=== PATIENT | female | born 1995 | race Caucasian/White ===

== ENCOUNTER → 2018-02-13 09:35 | Outpatient (CLI) | payer MEDICAID, SELFPAY ==
[2018-02-13 10:38] LABS: Hematocrit 39.5 % (37-47); Hemoglobin 13.7 g/dl (12.0-15.0); Mean Corp Hgb Conc 34.7 g/gl (32-36); Mean Corpuscular Hgb 29.4 pg (27.0-32.0); Mean Corpuscular Volume 84.8 fL (81-99); Mean Platelet Vol. 9.9 fl (6.2-12.0); Platelet Count 242 K/mm3 (150-450); RBC Distribution Width CV 13.3 % (11.6-14.6); RBC Distribution Width SD 40.9 fl (35.1-43.9); Red Blood Count 4.66 M/mm3 (4.2-5.4); Scan Indicated on CBC? Y/N NO; White Blood Count 6.8 K/mm3 (4.4-11.0)
[2018-02-13 11:00] LABS: AST(SGOT) 14 U/L (15-37); Alanine Aminotransfer ALT/SGPT 17 U/L (13-56); BUN 7 mg/dL (7-18); Creatinine, Serum 0.65 mg/dL (0.55-1.02); EST Glomerular Filtration Rate 119 mL/min (>60); Est Glom Filt Rate - Afr Amer 144 mL/min (>60); Glucose Challenge Gest 1H 50g 107 mg/dL (70-140)
[2018-02-14 14:01] LABS: HIV - WCH Non-Reactive (Nonreactive); Rubella IgG 69.2 IU/mL
[2018-02-14 15:35] LABS: HEPATITIS B SURFACE AG Negative (Negative)
[2018-02-16 03:58] LABS: Rapid Plasmin Reagin (RPR) NONREACTIVE (NONREACTIVE)
== END ==
PROVIDERS: Visit Provider Obstetrics & Gynecology
DX: O09.299 Supervision of pregnancy with other poor reproductive or obstetric history, unspecified trimester (principal); Z3A.00 Weeks of gestation of pregnancy not specified
CPT/HCPCS: 36415; 82565; 82950; 84450; 84460; 84520; 84550; 85027; 86592; 86703; 86762; 86850; 86900; 87340

== ENCOUNTER 2018-02-28 06:07 | Emergency (ER) | payer MEDICAID, SELFPAY ==
[2018-02-28 06:07] VITALS: BP 150/86; PULSE 93; RESP 18; TEMP 36.5; O2SAT 93; BMI 39.5
--- NOTE | 2018-02-28 06:27 | ED.DCSUM_ITS ---
- ER Visit Summary Date of Service: 02/28/18 Chief Complaint: Urinary urgency History of Present Illness: The patient is a 22 F who presents for 1 week of intermittent urinary urgency. Patient states for the last week she has had suprapubic pain and pressure, feeling like she needed to urinate but unable to. Since 1 AM this morning she has had worsening of her symptoms. She is 14 weeks . She denies fever, vomiting, diarrhea. She has had myalgias for the last week so she thought this was related to her being sick. No vaginal bleeding or discharge. Physical Examination: Vital signs: afebrile, hemodynamically stable, no hypoxia on room air General: well nourished, well developed, in no distress Skin: warm, dry, no rash, no pallor HEENT: normocephalic and atraumatic; PERRL, EOMI, moist mucous membranes Cardiovascular: regular rate and rhythm without murmurs, no peripheral edema, 2 + pulses all distal extremities Respiratory: No increased work of breathing, lungs are clear to auscultation bilaterally, no rales, rhonchi or wheezing Abdominal: Abdomen is soft, mild suprapubic tenderness with normoactive bowel sounds, no guarding or rebound, no masses MSK: Moves all extremities, no deformities, normal strength Neuro: Awake and alert, oriented ?4. No facial droop, sensation and motor function intact and symmetric Test Results: Abnormal Lab Results 02/28/18 06:40 Urine Color Yellow Urine Clarity Clear Urine pH 7.0 Ur Specific Balm 1.010 Urine Protein Negative Urine Glucose (UA) Normal Urine Ketones Negative Urine Occult Blood Negative Urine Nitrite Negative Urine Bilirubin Negative Urine Urobilinogen Normal Ur Leukocyte Esterase Negative Urine RBC 0 SEEN Urine WBC 0 SEEN Ur Squamous Epith Cells 0 SEEN Urine Bacteria RARE Urine Mucus 0 SEEN Emergency Department Course and Treatment: Bladder scan showed 100 cc in the bladder. Straight catheterization was performed with return of 800 cc of urine. Urinalysis was performed and showed no signs of urinary tract infection but did have rare bacteria. Because patient is known to be , urine culture was sent and patient was started on Keflex to cover her for bacteriuria in . Discussed with patient the urinary retention and the possibility that if she continues to have urinary retention she may need a Patel catheter placed and follow-up with urology. Patient requested at this time that we not do that and that she be given the opportunity to spontaneously void now that her bladder has been emptied and she has been started on antibiotics. We discussed any possible medications that could be causing urinary retention, and she stated that she started garlic and cayenne pepper supplements 1 week ago to help control her blood pressure naturally, which corresponds to her beginning to have issues with urinary retention. Her doctor did not advise her to start these medications, thus I encouraged her to stop them to see if this helps with her urinary symptoms. She agreed and was discharged home. She will return if she has recurrent issues with urinary retention. Treatment Plan: [] Disposition: [] Impression: Acute urinary retention, , asymptomatic bacteriuria This note was generated with [employer] dictation software. It may contain incorrect words, spelling, and punctuation that were not noted in review of the chart prior to signing ED Disposition - Plan for ED Patient: Chief Complaint: Complaint Prescriptions: Cephalexin [Keflex] 500 mg PO Q12H #14 cap Referrals: Care Physician,No Primary [Primary Care Provider] -
[2018-02-28 06:50] LABS: Mucous, Urine 0 SEEN /hpf (<or=2+); Red Blood Cells-Urine 0 SEEN /hpf (0-5); Squamous Epithelial Cells - UA 0 SEEN /hpf (5-10); White Blood Cells 0 SEEN /hpf (0-5)
[2018-02-28 06:58] LABS: Color, Urine Yellow (Yellow); Glucose, Dipstick Normal (Normal); Ketone-Dipstick Negative (Negative); Leukocyte Esterase-Dipstick Negative /ul (Negative); Nitrite-Dipstick Negative (Negative); Occult Blood-Urine Negative /ul (Negative); Protein-Dipstick Negative (Negative); Urine Bilirubin Dipstick Negative (Negative); Urine Clarity Clear (Clear); Urine Urobilinogen Normal (Normal)
[2018-02-28 07:08] LABS: Bacteria RARE /hpf (None Seen)
--- NOTE | 2018-02-28 07:58 | ED.DEP ---
ED Disposition - Plan for ED Patient: Disposition: Home or Assisted Living Chief Complaint: Complaint Instructions: ED Retention Urinary Female, ED UTI Cystitis Female Prescriptions: Cephalexin [Keflex] 500 mg PO Q12H #14 cap Referrals: Care Physician,No Primary [Primary Care Provider] - Kate Lai MD [STAFF PHYSICIAN] - 1-2 Days if not improving Additional Instructions: Please stop taking your supplements for blood pressure control, as the possibly could be contributing to your urinary retention. Take the antibiotic as prescribed. If you have inability to urinate for greater than 12 hours, return to the emergency department for another evaluation. If you have any worsening of your condition or any new concerning symptoms, please return immediately to the emergency department for another evaluation.
[2018-02-28 08:04] VITALS: BP 125/67; PULSE 71; RESP 15; O2SAT 99
== END 2018-02-28 08:05 | disposition home or self-care (01) ==
PROVIDERS: Emergency Provider Emergency Medicine
DX: O26.892 Other specified pregnancy related conditions, second trimester (principal); R82.71 Bacteriuria; R33.9 Retention of urine, unspecified; Z3A.14 14 weeks gestation of pregnancy; Z79.899 Other long term (current) drug therapy
CPT/HCPCS: 81001; 87086; 99283; P9612

== ENCOUNTER 2018-07-05 16:50 | Outpatient (RCR) | payer MEDICAID, SELFPAY | END 2018-07-26 23:59 | LOC: DC 16:50 | PROVIDERS: Visit Provider Advanced Practice Midwife | DX: O24.410 Gestational diabetes mellitus in pregnancy, diet controlled (principal) ==

== ENCOUNTER 2018-09-03 06:45 | Inpatient (IN) | payer MEDICAID, SELFPAY ==
[2018-09-03 00:55] VITALS: BMI 42.2
[2018-09-03] MEDS: Acetaminophen 500 MG Tablet 1000 MG PO (01:52)
[2018-09-03] MEDS: Mag Hydrox/Al Hydrox/Simeth 30 ML UDC PO (01:53)
[2018-09-03] MEDS: 0.9% Saline Lock 10 ML Syringe IV (01:53)
[2018-09-03 01:57] LABS: Hematocrit 33.9 % (37-47); Hemoglobin 10.8 g/dl (12.0-15.0); Mean Corp Hgb Conc 31.9 g/gl (32-36); Mean Corpuscular Hgb 24.8 pg (27.0-32.0); Mean Corpuscular Volume 77.8 fL (81-99); Mean Platelet Vol. 9.9 fl (6.2-12.0); Platelet Count 220 K/mm3 (150-450); RBC Distribution Width CV 14.6 % (11.6-14.6); RBC Distribution Width SD 41.4 fl (35.1-43.9); Red Blood Count 4.36 M/mm3 (4.2-5.4); White Blood Count 7.6 K/mm3 (4.4-11.0)
[2018-09-03 02:01] LABS: Scan Indicated on CBC? Y/N NO
[2018-09-03 02:06] LABS: Prothrombin Time (Protime)PT. 13.2 SECONDS (11.7-14.9)
[2018-09-03 02:07] LABS: Partial Thromboplast Time 29.2 Seconds (24.1-36.2)
[2018-09-03 02:20] LABS: AST(SGOT) 22 U/L (15-37); Alanine Aminotransfer ALT/SGPT 21 U/L (13-56); Albumin, Serum 2.7 g/dL (3.2-5.0); Alkaline Phosphatase 179 U/L (45-117); Amylase 58 U/L (25-115); Bilirubin, Direct 0.07 mg/dL (0.00-0.30); EST Glomerular Filtration Rate 130 mL/min (>60); Est Glom Filt Rate - Afr Amer 158 mL/min (>60); Estimated Creatinine Clearance 125.92 ml/min; Lipase 147 U/L (73-393); Protein, Total 6.7 g/dL (6.4-8.2); Uric Acid 6.5 mg/dL (2.6-6.0)
[2018-09-03 07:41] LABS: Bedside Glucose 69 mg/dL (70-110)
[2018-09-03] MEDS: Lactated Ringers 1,000 ML 50 ML IV ×3 (07:44→17:49)
[2018-09-03] MEDS: Oxytocin 30 units/NS 500 ml 30 UNITS/500 ML IV.SOLN IV (07:44)
--- NOTE | 2018-09-03 08:35 | PCM.HP.OB ---
- Problem List (1) Gestational diabetes mellitus (GDM) Status: Acute (2) Gestational hypertension Status: Acute (3) Obesity during Status: Acute History Date of Admission: 06/05/17 Final DANITA: 09/02/18 Final DANITA Source: LMP Gestational age: 40 Weeks and 1 Days History of this : This is a 22 year-old, G [6], P [2031], at 40 weeks 1day gestational age. Presented to L&D late last night with Headache x 5 days, ringing in the ears, no vision changes. Tylenol given, now just feeling pressure rating it a 3/10 and improved. Patient non compliant, not seen in off since 07/06/18. Declined induction of labor at 37 weeks for Gestational Hypertension. Patient with Gestational Diabetes, on insulin. Patient now requesting induction of labor. Allergies codeine Allergy (Verified 02/28/18 06:11) Shortness of breath vancomycin Adverse Reaction (Verified 02/28/18 06:11) Rash Redness presented to arms/face/back, hives to back with severe itching, pt stated she also felt light headed. Home Medications: Home Medications Ferrous Sulfate 325 mg PO DAILY@0800 06/05/17 Magnesium 30 mg PO DAILY 06/05/17 Cephalexin [Keflex] 500 mg PO Q12H #14 cap 02/28/18 Vit,Calc76/Iron/Folic [Pnv 29-1 Tablet] 1 each PO DAILY 02/28/18 Aspirin [Aspirin, Baby] 81 mg PO DAILY@0800 09/03/18 Cayenne 450 mg PO 09/03/18 Garlic 500 mg PO 09/03/18 Insulin NPH Human [Humulin N (Bkc)] 6 units SC QHS 09/03/18 Smoking Status: Never smoker Alcohol: None Number of Fetus(es): 1 Heart Tracin, moderate variability, accels, Category 1 TOCO: Irregular, mild. Pitocin at 2mu's Cervix 3cm/50%/-2 History Past Pregnancies: Past Pregnancies Delivery Date Name GA/Weeks Outcome Route Weight Infant Gender Labor Length Anesthesia Delivery Location Provider FOB Labs: GC/CT negative HIV negative Rubella negative O positive HBsAG negative RPR negative GC/CT negative Expected Infant Delivery Method: Spontaneous Vaginal Review of Systems Constitutional: Denies: Chills, Fever, Weight Change Eyes: Denies: Blurred vision, Double vision HEENT: Reports: Head Aches - Headache rating a 7 upon admission, given Tylenol then improved to 3/10.. Denies: Sinus Congestion, Sinus Drainage Cardiovascular: Denies: Chest Pain, Palpitations Respiratory: Denies: Cough, Shortness of breath at rest, Sputum production Gastrointestinal: Denies: Abdominal Pain, Nausea, Vomiting Genitourinary: Denies: Dysuria Musculoskeletal: Denies: Joint Pain, Joint Tenderness Skin: Denies: Rash, Wounds Neurological: Denies: Numbness, Tingling, Focal weakness Psychiatric: Denies: Anxiety, Depression, Homicidal Ideations, Suicidal Ideations Physical Exam General: Alert, Oriented x3, No apparent distress HEENT: Atraumatic, Normocephalic Cardiovascular: Regular rate, Regular Rhythm, No murmurs Lungs: Clear to auscultation, Normal air movement, No rhonchi, No wheeze Abdomen: Bowel Sounds Present, Non Tender, Gravid Neurological: - - +1/4 DTR bilateral patellar, no clonus HYBRID CORN BREEDER: Normal external genitalia. Negative for: Vulvar lesions Estimated gestational size: Appropriate for gestational size Presentation: Cephalic Cervix Dilation (cm): 3 Assessment/Plan All Active Problems Gestational diabetes mellitus (GDM) (Acute) Gestational hypertension (Acute) Obesity during (Acute) Cellulitis and abscess (Acute) This is a 22 year-old, G [6], P [2031], at 40 weeks gestational age. A:Induction of Labor for postdates Gestational Hypertension Gestational Diabetes Mellitus P: 1) Admit to L&D for Induction of labor due to postdates and gestational hypertension 2) IV, admission labs, pre-e labs. Uric acid elevated. 3) Planning epidural for pain management. 4) notified of patient in labor and for referral of management.
[2018-09-03 08:51] LABS: Bedside Glucose 69 mg/dL (70-110)
[2018-09-03 09:51] LABS: Protein, Urine (Random) 24.2 mg/dL (<11.9); Protein:Creat Ratio 248 mg/g CRE (0-200)
[2018-09-03 10:21] LABS: Group B Strep DNA By PCR Negative (Negative); Internal Control PASS; Probe Check PASS; Specimen Processing Control PASS
[2018-09-03 12:57] LABS: Bedside Glucose 70 mg/dL (70-110)
--- NOTE | 2018-09-03 13:03 | PCM.PN.BLA ---
Progress Note Contractions are getting more uncomfortable. Patient denies any headache or visual disturbances. VSS, BPs in normal range. BS just checked 70- FHTs -normal baseline, moderate variability, no repetitive decelerations. Tocometer shows contractions every 2-3 minutes. Assessment and plan: 40-week 1 day intrauterine gestation undergoing Pitocin induction of labor. We will proceed with AROM after patient gets epidural at her request. Is ready for this. Gestational diabetes class B. Blood sugars have been well controlled thus far. We will continue to monitor per protocol. Gestational hypertension: Blood pressures are normal in labor. We will continue to monitor.
[2018-09-03] MEDS: fentaNYL-bupivacaine (epidural) 100 ML BAG EPIDURAL ×2 (13:25→17:49)
--- NOTE | 2018-09-03 14:42 | PCM.PN.OB ---
Patient Problems: Active and Suspected Problems Gestational diabetes mellitus (GDM) (Acute) Gestational hypertension (Acute) Obesity during (Acute) Subjective: Resting comfortably in bed with epidural. at bedside. Objective: FHT: 135, moderate variability, accels, no decels. TOCO: Irregular every 2-4 minutes Cervix: 5cm/ 60%/-1. AROM for small amount of clear fluid. - Physical Exam Weight: 246 lb Body Mass Index (BMI) 42.2 Laboratory Tests Past 24 Hrs 09/03/18 09/03/18 09/03/18 01:40 01:40 01:40 WBC 7.6 RBC 4.36 Hgb 10.8 L Hct 33.9 L MCV 77.8 L MCH 24.8 L MCHC 31.9 L RDW 14.6 RDW Differential 41.4 Plt Count 220 MPV 9.9 PT 13.2 INR 1.0 APTT 29.2 Creatinine 0.60 Estim Creat Clear Calc 125.92 Est GFR (MDRD) Af Amer 158 Est GFR (MDRD) Non-Af 130 Uric Acid 6.5 H Total Bilirubin 0.20 Direct Bilirubin 0.07 AST 22 ALT 21 Alkaline Phosphatase 179 H Total Protein 6.7 Albumin 2.7 L Globulin 4.0 Amylase 58 Lipase 147 U Random Total Protein Urine Creatinine Protein/Creatinin Ratio Group B Strep DNA Specimen Comment Blood Type Antibody Screen 09/03/18 09/03/18 09/03/18 01:40 08:55 09:00 WBC RBC Hgb Hct MCV MCH MCHC RDW RDW Differential Plt Count MPV PT INR APTT Creatinine Estim Creat Clear Calc Est GFR (MDRD) Af Amer Est GFR (MDRD) Non-Af Uric Acid Total Bilirubin Direct Bilirubin AST ALT Alkaline Phosphatase Total Protein Albumin Globulin Amylase Lipase U Random Total Protein 24.2 H Urine Creatinine 97.70 Protein/Creatinin Ratio 248 H Group B Strep DNA Negative Specimen Comment Not Reportable Blood Type O POSITIVE Antibody Screen NEGATIVE POC Glucose 09/03/18 09/03/18 09/03/18 12:26 08:45 07:36 POC Glucose 70 69 L 69 L Medical Necessity - Tobacco Use Smoking Status: Never smoker Assessment/Plan All Active Problems Gestational diabetes mellitus (GDM) (Acute) Gestational hypertension (Acute) Obesity during (Acute) Cellulitis and abscess (Acute) A:Active labor, progressing Category 1 FHT P: 1) Continue with active management. 2) Epidural effective 3) notified of patient status.
[2018-09-03 16:15] LABS: Bedside Glucose 65 mg/dL (70-110)
[2018-09-03 16:15] LABS: Bedside Glucose 90 mg/dL (70-110)
[2018-09-03 17:16] LABS: Bedside Glucose 67 mg/dL (70-110)
[2018-09-03 18:36] LABS: Bedside Glucose 57 mg/dL (70-110)
[2018-09-03 18:36] LABS: Bedside Glucose 79 mg/dL (70-110)
[2018-09-03 18:55] LABS: Bedside Glucose 81 mg/dL (70-110)
[2018-09-03 19:56] LABS: Bedside Glucose 69 mg/dL (70-110)
[2018-09-03] MEDS: Oxytocin 30 units/NS 500 ml 30 UNITS/500 ML IV.SOLN 334 UNITS IV (21:00)
--- NOTE | 2018-09-03 21:04 | PCM.OB.VAG ---
Vaginal Delivery Maternal Presentation: Medically Indicated Induction Method of Induction: Pitocin, Amniotomy Medical Reason for Induction: - - gestational diabetes class B Amniotic Membrane Rupture Type: Spontaneous Amniotic Fluid Description: Clear Final DANITA: 09/02/18 Gestational age: 40 Weeks and 1 Days Date of Procedure: 09/03/18 Pre-Operative Diagnosis: labor, gestational diabetes Post-Operative Diagnosis: same Surgery/ Procedure Performed: Spontaneous Vaginal Delivery Type of Anesthesia: Epidural Description of Procedure: A vigorous female infant was delivered RETA over intact perineum by Claudia Jo CNM w/ me present for delivery. The remainder the was delivered with maternal pushing and gentle traction only in less than 15 seconds. The Pitocin infusion was initiated for active management of the third stage. The cord was clamped and cut after 1 minute. The was attended to by the waiting nursing staff. The placenta was delivered spontaneously and intact. The cervix and vagina were intact. Sponge and needle counts were correct. A vaginal sweep was completed by Claudia Jo CNM. Presentation: RETA Placental Delivery Description: Spontaneous Placenta Disposition: [facility] Cord Vessel Description: 3 Vessels Cord Entanglement: None Estimated Blood Loss: 200 A gender: Female Episiotomy Description: None Laceration: None Medications given after delivery: IV Pitocin Complications: None
[2018-09-03] MEDS: Oxytocin 30 units/NS 500 ml 30 UNITS/500 ML IV.SOLN 167 UNITS IV (21:30)
[2018-09-03 21:56] LABS: Bedside Glucose 78 mg/dL (70-110)
[2018-09-04] VITALS (7 sets, daily range): BP systolic 122–131; BP diastolic 61–70; PULSE 77–95; RESP 16; TEMP 36.1–37.1; O2SAT 96–100
[2018-09-04] MEDS: Naproxen 250 MG Tablet PO ×3 (03:28→21:13)
[2018-09-04 05:50] LABS: Bedside Glucose 88 mg/dL (70-110)
[2018-09-04] MEDS: Acetaminophen 500 MG Tablet 1000 MG PO ×2 (06:42→16:28)
--- NOTE | 2018-09-04 16:39 | PCM.PN.OB ---
Patient Problems: Active and Suspected Problems Gestational diabetes mellitus (GDM) (Acute) Gestational hypertension (Acute) Obesity during (Acute) Subjective: pt seen at bedside, doing well. pt denies Headache, blurry vision or epigastric pain. Pt reports good pain mgmt, lochia mild. breast feeding. - Physical Exam General: Alert, Oriented x3 Abdomen: Soft, Non Tender, - - fundus firm Vital Signs Temp Pulse Resp BP Pulse Ox 98.2 F 77 16 126/67 H 96 09/04/18 16:23 09/04/18 16:23 09/04/18 16:23 09/04/18 16:23 09/04/18 16:23 Oxygen Delivery Method Room Air Weight: 111.584 kg Body Mass Index (BMI) 42.2 Intake and Output for Last 24 Hours 09/02/18 09/03/18 09/04/18 23:59 23:59 23:59 Intake Total 2419 / 2419 Output Total 1050 / 1050 300 / 300 Balance 1369 / 1369 -300 / -300 POC Glucose 09/04/18 09/03/18 09/03/18 05:37 21:48 19:52 POC Glucose 88 78 69 L 09/03/18 09/03/18 09/03/18 18:50 18:32 18:11 POC Glucose 81 79 57 L 09/03/18 17:05 POC Glucose 67 L Medical Necessity - Tobacco Use Smoking Status: Never smoker Assessment/Plan All Active Problems Gestational diabetes mellitus (GDM) (Acute) Gestational hypertension (Acute) Obesity during (Acute) Cellulitis and abscess (Acute) PPD#1, doing well routine care pt requesting dc home at 24 hr- BPs stable dc home today at 24 hr
--- NOTE | 2018-09-04 16:45 | DCINST_ITS ---
Discharge Diet: No Restrictions Discharge Activity: Return to Normal Activity, May not drive while taking narcotic pain medications., May Shower May resume sexual activity in: 4-6 weeks Additional Activity Instructions:: Nothing in the vagina for 4-6 weeks. You may return to work/school in 6 weeks. Call your doctor if your incision/area has: Continuous Slow Oozing, Sudden Increased Bleeding, Increased Pain/ Swelling, Increased Redness, Foul Smelling Discharge Additional Instructions: If you experience any of the following, contact your healthcare provider. * Bleeding that soaks a pad every hour for 2 hours * Fever 100.4 or higher * Unrelieved incision or abdominal pain * Swelling, redness, discharge or bleeding from your incision or episiotomy site * Your incision begins to separate * Problems urinating (including inability to urinate or burning while urinating). * Visual changes * Severe headache * Flu-like symptoms * Pain or redness in one of both of your breasts * Pain, warmth, tenderness or swelling in your legs, especially the calf area * Frequent nausea and vomiting * Symptoms of depression or anxiety If you experience any of the following, call 911 or go to the nearest Emergency Room. * Chest pain * Problems breathing * Seizure activity * Partial or complete paralysis of a body part, slurred speech, weakness or drooping of the face, or a sudden inability to walk or hold your balance Allergies/Adverse Reactions: Allergies codeine Allergy (Verified 02/28/18 06:11) Shortness of breath vancomycin Adverse Reaction (Verified 02/28/18 06:11) Rash Redness presented to arms/face/back, hives to back with severe itching, pt stated she also felt light headed. Medications to take at Discharge Ferrous Sulfate 325 mg PO DAILY@0800 06/05/17 Magnesium 30 mg PO DAILY 06/05/17 Cephalexin [Keflex] 500 mg PO Q12H #14 cap 02/28/18 Vit,Calc76/Iron/Folic [Pnv 29-1 Tablet] 1 each PO DAILY 02/28/18 Cayenne 450 mg PO 09/03/18 Garlic 500 mg PO 09/03/18 Naproxen [Naprosyn] 250 - 500 mg PO Q8H PRN PRN #30 tablet 09/04/18 The following prescriptions were given: Naproxen [Naprosyn] 250 - 500 mg PO Q8H PRN PRN #30 tablet PRN Reason: Mild Pain (-09/02) When: Call to make an appointment with your doctor in 6 weeks. If you had elevated Blood Pressure or 4th degree laceration you will need to be seen in 2 weeks. Primary Care Physician: Care Physician,No Primary [Primary Care Provider] - Test Results: Test results from this visit will be discussed in further detail at your follow- up appointment, if applicable.
== END 2018-09-04 22:30 | disposition home or self-care (01) | DRG 560 ==
LOC: WPOUT 06:50
PROVIDERS: Advanced Practice Midwife; Admitting Provider Obstetrics & Gynecology; Referring Provider Obstetrics & Gynecology; Visit Provider Obstetrics & Gynecology
DX: O48.0 Post-term pregnancy (principal); O24.424 Gestational diabetes mellitus in childbirth, insulin controlled; O13.4 Gestational [pregnancy-induced] hypertension without significant proteinuria, complicating childbirth; O99.214 Obesity complicating childbirth; Z79.82 Long term (current) use of aspirin; Z79.4 Long term (current) use of insulin; Z3A.40 40 weeks gestation of pregnancy; Z37.0 Single live birth
CPT/HCPCS: 59025; 59050; 80076; 82150; 82565; 82570; 82962; 83690; 84156; 84550; 85027; 85610; 85730; 86850; 86900; 87081; 87653; 99218; J7120; A4216; G0378

== ENCOUNTER 2019-06-02 19:09 | Emergency (ER) | payer MEDICAID, SELFPAY ==
[2019-06-02 19:10] VITALS: BP 149/90; PULSE 79; PULSE 92; RESP 17; RESP 18; TEMP 36.5; O2SAT 98; BMI 38.9
--- NOTE | 2019-06-02 19:30 | US_ITS ---
HISTORY: PELVIC PAIN HX OF PCOS ADDITIONAL HISTORY: None provided. COMPARISON: 06/14/2015 TECHNIQUE: Transvaginal sonographic images of the pelvis were acquired utilizing grayscale, color Doppler and spectral Doppler imaging. FINDINGS: UTERUS: 9.7 x 5.7 x 6.3 cm. Coarsened echotexture without distinct mass. Small area of heterogeneous echogenicity in the cervix may be related to small nabothian cysts. ENDOMETRIUM: Small amount of fluid in the endometrium. A single layer thickness measures 3-4 mm. OVARIES: Unremarkable, measuring 2.5 x 1.3 x 2.2 cm on the right and 2.8 x 1.2 x 2.3 cm on the left. Flow demonstrated in the ovaries with spectral Doppler evaluation. ADNEXA: No mass. FREE FLUID: None detected. US/Transvaginal Non- IMPRESSION: Small amount of endometrial fluid. Small area of heterogeneous echogenicity in the cervix may be related to small nabothian cysts. at 2217 Reported and signed by: Debora Tom MD Electronically Signed: Debora Tom MD at 22:17 EST Tel , Service support ,
--- NOTE | 2019-06-02 19:33 | ED.DCSUM_ITS ---
- ER Visit Summary Date of Service: 06/02/19 Chief Complaint: Left lower quadrant pelvic pain. History of Present Illness: The patient is a 23 F to polycystic ovarian syndrome. G7, P3 AB 4 there is being miscarriages. States her last menstrual period 05/16/2019. She is taken home negative test. States has had intermittent pelvic pain on left side for last 3 to 4 weeks. Associated nausea vomiting today. No fever. No dysuria. No vaginal bleeding or discharge. Physical Examination: Young female no acute distress. Vital signs are stable and afebrile. HEENT exam unremarkable. Lungs clear to auscultation bilaterally. Heart regular rhythm no murmur. Abdomen soft. Nondistended normal bowel sounds no peritoneal signs. She has very low left lower quadrant pelvic pain. Remedies moves all 4. Back nontender. Neurologically she is awake alert with no focal neurological deficits. Test Results: Urinalysis shows no signs of infection. Urine test negative. Emergency Department Course and Treatment: Patient with left lower quadrant pelvic pain. UA, ultrasound and urine test to be obtained. Repeat exam patient is doing well at 21:20 PM. Awaiting ultrasound and results of the ultrasound. Treatment Plan: [] Disposition: [] Impression: Acute left-sided pelvic pain This note was generated with [employer] dictation software. It may contain incorrect words, spelling, and punctuation that were not noted in review of the chart prior to signing ED Disposition - Plan for ED Patient: Referrals: Care Physician,No Primary [Primary Care Provider] -
[2019-06-02 19:46] LABS: Mucous, Urine 0 SEEN /hpf (<or=2+); Red Blood Cells-Urine 0 SEEN /hpf (0-5)
[2019-06-02 19:48] LABS: Color, Urine Yellow (Yellow); Glucose, Dipstick Normal (Normal); Ketone-Dipstick 5 mg/dl (Negative); Leukocyte Esterase-Dipstick Negative /ul (Negative); Nitrite-Dipstick Negative (Negative); Occult Blood-Urine Negative /ul (Negative); Protein-Dipstick Negative (Negative); Urine Bilirubin Dipstick Negative (Negative); Urine Clarity Cloudy (Clear); Urine Urobilinogen Normal (Normal); Urine pH 6.5 (5.0 - 8.0)
[2019-06-02 19:49] LABS: Internal QC Validated? YES +Cl - CLEAR BKGD; Pregnancy, Urine Negative Negative
[2019-06-02 20:00] LABS: Squamous Epithelial Cells - UA 10-25 SEEN /hpf (5-10)
[2019-06-02 20:01] LABS: Bacteria 1+ /hpf (None Seen); White Blood Cells 0-5 SEEN /hpf (0-5)
--- NOTE | 2019-06-02 21:49 | ED.DEP ---
ED Disposition - Plan for ED Patient: Disposition: Home or Assisted Living Referrals: Parris Jo CNM [Certified Nurse Special Service Representative] - As soon as possible Additional Instructions: Tylenol and/or Motrin for pain. [facility] and see 1 of the PHP CONSULTANT physicians. Your urine was normal and not infected. Your urine test was negative.
--- NOTE | 2019-06-02 22:37 | ED.DEP ---
ED Disposition - Plan for ED Patient: Disposition: Home or Assisted Living Instructions: What Are Ovarian Cysts? Prescriptions: Ondansetron [Zofran Odt] 4 mg PO Q8H PRN PRN #10 tablet PRN Reason: Nausea Referrals: Parris Jo CNM [Certified Nurse Training Personnel Supervisor] - As soon as possible Additional Instructions: Tylenol and/or Motrin for pain. [facility] and see 1 of the OPERATOR SPECIALIST COMMUNICATIONS physicians. Your urine was normal and not infected. Your urine test was negative.
[2019-06-02 22:45] VITALS: RESP 18
== END 2019-06-02 22:45 | disposition home or self-care (01) ==
PROVIDERS: Emergency Provider Emergency Medicine
DX: R10.2 Pelvic and perineal pain (principal); E28.2 Polycystic ovarian syndrome; N88.8 Other specified noninflammatory disorders of cervix uteri; R11.2 Nausea with vomiting, unspecified; Z79.899 Other long term (current) drug therapy
CPT/HCPCS: 76830; 81001; 81025; 99282

== ENCOUNTER 2021-01-15 11:05 | Inpatient (IN) | payer MEDICAID, SELFPAY ==
[2021-01-15] VITALS (43 sets, daily range): BP systolic 113–138; BP diastolic 60–88; PULSE 68–106; TEMP 36.4–37.4; O2SAT 97–100; BMI 40.1
[2021-01-15 09:27] LABS: ROM Internal Control Test YES-OK TO RESULT pt. (Internal QC); ROM Patient Test Negative (Negative)
[2021-01-15] MEDS: Lactated Ringers 1,000 ML 50 ML IV (11:35)
[2021-01-15 11:48] LABS: Absolute Lymphocyte Count 1.49 X10^3/uL (0.83-4.51); Absolute Neutrophil Count 5.5 X10^3/uL (2.0-7.7); Basophil# 0.04 X10^3/uL; Basophil% 0.5 % (0-1); Eosinophil# 0.37 X10^3/uL; Eosinophils% 4.5 % (0-5); Hematocrit 35.8 % (37-47); Hemoglobin 11.9 g/dL (12.0-15.0); Lymphocyte # 1.49 X10^3/ul (0.83-4.51); Mean Corp Hgb Conc 33.2 g/dL (32-36); Mean Corpuscular Hgb 27.4 pg (27.0-32.0); Mean Corpuscular Volume 82.5 fL (81-99); Mean Platelet Vol. 9.8 fl (6.2-12.0); Monocyte# 0.79 X10^3/uL; Monocyte% 9.6 % (0-10); NRBC Flagged by Analyzer 0 % (0-5); Neutrophil # 5.51 X10^3/uL (2.7-7.7); Neutrophil % 66.6 % (47-70); Platelet Count 215 K/mm3 (150-450); RBC Distribution Width CV 13.1 % (11.6-14.6); RBC Distribution Width SD 39.2 fl (35.1-43.9); Red Blood Count 4.34 M/mm3 (4.2-5.4); White Blood Count 8.3 K/mm3 (4.4-11.0)
[2021-01-15] MEDS: Oxytocin 30 units/NS 500 ml 30 UNITS/500 ML IV.SOLN IV (11:53)
[2021-01-15] MEDS: Penicillin G 3,000,000 Units 50 ML 100 UNITS IV ×2 (16:25→20:42)
--- NOTE | 2021-01-15 17:06 | HP.PCM.OB_ITS ---
HPI - General General Date of Admission: 01/15/21 HPI Narrative RAYMOND WHALEY, is a 25 F -0-4-3 who presents at 39 weeks 5 days for elective induction of labor. Patient with no care in last 4 weeks. Presented to office asking for elective induction of labor due to lower back pain. Presented with risk benefits and alternatives and elected for induction of labor. OB history significant for gestational hypertension, GDM plus A2, maternal obesity, history of macrosomia 9 pounds 9 ounces Maternal Data Information DANITA Calculator Estimated Delivery Date Method Current WG Current Estimate 01/17/21 Manual 39w 5d PFSH PFSH Medical History (Updated 01/15/21 @ 17:12 by Parris Jo CNM) Gestational HTN MRSA infection Tonsillectomy planned Home Medications PNV 29-1 1 ea PO DAILY 02/28/18 [History Last Taken 01/13/21] levonorgestrel-ethinyl estrad 1 tab PO DAILY 06/02/19 [History Last Taken Unknown] ondansetron 4 mg PO Q8H PRN PRN #10 tab 06/02/19 [Rx Last Taken Unknown] aspirin 81 mg PO DAILY 01/15/21 [History Last Taken Unknown] Allergy/AdvReac Type Severity Reaction Status Date / Time codeine Allergy Shortness Verified 01/15/21 11:30 of breath vancomycin AdvReac Rash Verified 01/15/21 11:30 Family History (Updated 01/15/21 @ 12:14 by Jacquie Enriquez RN) Son Febrile seizure Mother Asthma Surgical History (Updated 01/15/21 @ 11:43 by Jacquie Enriquez RN) [place] teeth removed Social History Smoking Status: Never smoker History Elective abortions Hx Para 3 Spontaneous abortions Hx # Term Pregnancies Ectopic pregnancies Hx # Pregnancies Multiple births # of living children NST FHR Rate Baby A Baseline: 135 Variability:: Moderate Accelerations:: 15 x 15 Decelerations:: None FHR Category:: Category I Uterine Activity:: Irregular, mild ROS Constitutional Constitutional: Reports systems reviewed and no addt'l complaints, except as documented; Denies headache(s) Eyes Eyes: Denies acute decrease in peripheral vision, blurry vision or change in vis ion ENT HEENT: Reports systems reviewed and no addt'l complaints, except as documented Cardiovascular Cardiovascular: Denies chest pain or dizziness Respiratory/Chest Respiratory/Chest: Denies cough, dyspnea, dyspnea on exertion, shortness of breath at rest or shortness of breath with exertion Gastrointestinal Gastrointestinal: Denies abdominal pain, diarrhea, nausea or vomiting Genitourinary Genitourinary: Denies abdominal discomfort or movement Musculoskeletal Musculoskeletal: Denies limited range of motion Integumentary Integumentary: Reports systems reviewed and no addt'l complaints, except as documented Neurologic Neurologic: Reports systems reviewed and no addt'l complaints, except as documented Psychiatric Psychiatric: Reports systems reviewed and no addt'l complaints, except as documented Endocrine Endocrinology: Reports systems reviewed and no addt'l complaints, except as documented Hematologic/Lymphatic Hematologic/Lymphatic: Reports systems reviewed and no addt'l complaints, except as documented Allergic/Immunologic Allergic/Immunologic: Reports systems reviewed and no addt'l complaints, except as documented Vital Signs Vital Signs Vital Signs: 01/15/21 08:37 01/15/21 10:43 01/15/21 11:26 Temperature 98.7 F 99.3 F H 97.9 F Temperature Source Temporal Temporal Temporal Pulse Rate 101 H 98 Blood Pressure 133/88 H 133/66 H BP Systolic 133 133 BP Diastolic 88 66 Pulse Ox 98 01/15/21 11:27 01/15/21 13:02 01/15/21 13:03 Temperature 98.2 F Temperature Source Temporal Pulse Rate 106 H 89 Blood Pressure 134/73 H 127/60 H BP Systolic 134 127 BP Diastolic 73 60 Pulse Ox 98 97 01/15/21 14:12 01/15/21 15:19 01/15/21 15:20 Temperature 98.7 F 98.6 F Temperature Source Temporal Temporal Pulse Rate 84 80 Blood Pressure 116/61 120/66 BP Systolic 116 120 BP Diastolic 61 66 Pulse Ox 98 01/15/21 16:27 Temperature 98.3 F Temperature Source Temporal Pulse Rate 96 Blood Pressure 114/70 BP Systolic 114 BP Diastolic 70 Pulse Ox 99 Weight Weight: 226 lb 13.69 oz Body Mass Index (BMI) 40.1 Physical Exam Const alert and oriented x3 General Appearance: cooperative Orientation / Consciousness: awake, oriented to person, oriented to place and oriented to time Exam Limitations: no limitations HEENT normocephalic Head and Scalp: normal to inspection, normocephalic and atraumatic Face and Sinus: normal facial exam Eyes General Eye: normal appearance of both eyes Neck full ROM Chest Chest: symmetrical chest wall rise Resp normal respiratory effort and normal air movement Auscultation: clear to auscultation bilaterally Cardio regular rate, regular rhythm, S1 normal heart sound, S2 normal heart sound, no murmurs, no rub, no gallops and no clicks GI normal to inspection, nondistended, normoactive bowel sounds and non-tender appearance of the vagina normal Narrative: AROM for small amount of clear fluid Bladder / Kidney Exam: no CVA tenderness Manual OB Exam: estimated gestational size appropriate, presentation cephalic, dilated 3, effaced 60 and station -2 Back/Spine normal ROM Extremity normal to inspection and full ROM Skin no rashes or lesions noted Neuro oriented x3, CN's II-XII intact bilaterally and moves all extremities Sensorium / Orientation: awake, alert and oriented to person Motor Exam: clonus absent Deep Tendon Reflexes: Rt Patellar (L4): 2+ and Lt Patellar (L4): 2+ Labs Labs Labs: Blood Type O POSITIVE Antibody Screen NEGATIVE Hct 35.8 % (37-47) L Hgb 11.9 g/dL (12.0-15.0) L Rubella IgG Antibody 69.2 IU/mL Hep Bs Antigen Negative (Negative) HIV 1&2 Antibody Non-Reactive (Nonreactive) C.trachomatis DNA (PCR) Negative (Negative) Glucose 1 Hr 50 gm 107 mg/dL (70-140) Group B Strep DNA Negative (Negative) Rhogam given: No Assessment & Plan (1) Obesity during : (2) Encounter for elective induction of labor: PLAN: 1. Admit to labor and delivery 2. Routine labs, IV 3. Pitocin per protocol 4. Covid testing, unvaccinated 5. Epidural per her request for pain management 6. AROM 7. Continuous EFM 8. Dr. Rod notified of patient status and admission, [facility] physician
[2021-01-15] MEDS: Lactated Ringers 500 ML 999 ML IV ×2 (18:24→22:35)
[2021-01-15] MEDS: fentaNYL-bupivacaine (epidural) 100 ML BAG EPIDURAL (19:45)
[2021-01-15] MEDS: Oxytocin 30 units/NS 500 ml 30 UNITS/500 ML IV.SOLN 334 UNITS IV (22:55)
--- NOTE | 2021-01-15 23:03 | EX.PCM.OBRPT ---
Maternal Data Information DANITA Calculator Estimated Delivery Date Method Current Current Estimate 01/17/21 Manual 39w 5d Vaginal Delivery Maternal Presentation Maternal Presentation: Elective Induction Type of Induction: Pitocin Operative Information Date of Procedure: 01/15/21 Pre-Operative Diagnosis: Elective Induction of Labor Post-Operative Diagnosis: of viable male Surgery / Procedure Performed: Spontaneous Vaginal Delivery Type of Anesthesia: Epidural Estimated Blood Loss: 400 ml Time of Delivery: 22:54 Findings Description of Procedure: Progressed to complete with pressure. Epidural for pain management. of viable male over intact perineum. Apgars 9, 9. Infant head delivered direct OP with shoulders immediately forthcoming. Infant placed on maternal abdomen, strong cry. Mouth and nares suction for secretions. Pitocin started for active third stage management. Placenta delivered with expression [address] [place], intact, three-vessel cord. Perineum inspected and revealed intact, no repair needed. Fundus firm, EBL 400 mL. Vaginal sweep completed. Sponge and instrument count correct. Mom and baby stable, planning to breast-feed. Family bonding well. Dr. Rod notified of delivery Presentation: Vertex (OP) Amniotic Membrane Rupture Type: Artificial Amniotic Fluid Description: Clear Placental Delivery Description: Expressed Placenta Disposition: [facility] Cord Vessel Description: 3 Vessels Cord Entanglement: None A Gender: Male (1 minute): 9 (5 minute): 9 Delayed Cord Clamping: Yes Post Vaginal Delivery Medications Given After Delivery: IV Pitocin Episiotomy Description: None Laceration: None Complication Complications: None
[2021-01-16] VITALS (15 sets, daily range): BP systolic 118–149; BP diastolic 59–82; PULSE 76–110; RESP 16–18; TEMP 36.2–37.3; O2SAT 97–98
[2021-01-16] MEDS: Ibuprofen 600 MG Tablet PO ×3 (00:02→14:06)
[2021-01-16] MEDS: Acetaminophen 500 MG Tablet 1000 MG PO ×2 (04:15→11:59)
[2021-01-16 06:04] LABS: Hematocrit 33.7 % (37-47); Hemoglobin 11.2 g/dL (12.0-15.0); Mean Corp Hgb Conc 33.2 g/dL (32-36); Mean Corpuscular Hgb 27.5 pg (27.0-32.0); Mean Corpuscular Volume 82.8 fL (81-99); Mean Platelet Vol. 10.1 fl (6.2-12.0); Platelet Count 204 K/mm3 (150-450); RBC Distribution Width SD 39.1 fl (35.1-43.9); Red Blood Count 4.07 M/mm3 (4.2-5.4); White Blood Count 9.4 K/mm3 (4.4-11.0)
--- NOTE | 2021-01-16 09:41 | PCM.PN.OB ---
Subjective Subjective Doing well per patient and nursing staff. Ambulating and taking PO without difficulty. Voiding and passing flatus. Pain controlled. , services for assistance. Denies headache, visual changes, chest pain, shortness of breath, leg pain or increased bleeding. Lochia normal. Patient requesting to sign out AMA this evening due to childcare issues. Objective Data Objective Data Vital Signs: Vital Signs Temp Pulse Resp BP Pulse Ox 98.1 F 81 18 138/67 H 98 01/16/21 08:00 01/16/21 08:13 01/16/21 08:00 01/16/21 08:13 01/16/21 08:00 Oxygen Delivery Method Room Air Weight: 226 lb 13.69 oz Body Mass Index (BMI) 40.1 Intake & Output: Intake and Output for Last 24 Hours 01/14/21 01/15/21 01/16/21 23:59 23:59 23:59 Intake Total 2405.61 / 2405.61 333 / 333 Output Total 100 / 100 300 / 300 Balance 2305.61 / 2305.61 33 / 33 Lab / Micro Data Result Diagrams: 01/16/21 05:55 Labs: Laboratory Results - last 24 hr 01/15/21 11:35: WBC 8.3, RBC 4.34, Hgb 11.9 L, Hct 35.8 L, MCV 82.5, MCH 27.4, MCHC 33.2, RDW Std Deviation 39.2, RDW Coeff of Salima 13.1, Plt Count 215, MPV 9.8, Immature Gran % (Auto) 0.800, Neut % (Auto) 66.6, Lymph % (Auto) 18.0 L, [place] % (Auto) 9.6, Eos % (Auto) 4.5, Baso % (Auto) 0.5, Absolute Neuts (auto) 5.5, Absolute Lymphs (auto) 1.49, Nucleated RBC % 0 01/15/21 11:35: Blood Type O POSITIVE, Antibody Screen NEGATIVE 01/16/21 05:55: WBC 9.4, RBC 4.07 L, Hgb 11.2 L, Hct 33.7 L, MCV 82.8, MCH 27.5, MCHC 33.2, RDW Std Deviation 39.1, RDW Coeff of Salima 13.0, Plt Count 204, MPV 10.1 ROS Constitutional Constitutional: Reports systems reviewed and no addt'l complaints, except as documented; Denies headache(s) Eyes Eyes: Denies acute decrease in peripheral vision, blurry vision or change in vision ENT HEENT: Reports systems reviewed and no addt'l complaints, except as documented Cardiovascular Cardiovascular: Denies chest pain or dizziness Respiratory/Chest Respiratory/Chest: Denies cough, dyspnea, dyspnea on exertion, shortness of breath at rest or shortness of breath with exertion Gastrointestinal Gastrointestinal: Denies abdominal pain, diarrhea, nausea or vomiting Genitourinary Genitourinary: Denies abdominal discomfort Musculoskeletal Musculoskeletal: Denies limited range of motion Integumentary Integumentary: Reports systems reviewed and no addt'l complaints, except as documented Neurologic Neurologic: Reports systems reviewed and no addt'l complaints, except as documented Psychiatric Psychiatric: Reports systems reviewed and no addt'l complaints, except as documented Endocrine Endocrinology: Reports systems reviewed and no addt'l complaints, except as documented Hematologic/Lymphatic Hematologic/Lymphatic: Reports systems reviewed and no addt'l complaints, except as documented Allergic/Immunologic Allergic/Immunologic: Reports systems reviewed and no addt'l complaints, except as documented Physical Exam Const alert and oriented x3 General Appearance: cooperative Orientation / Consciousness: awake, oriented to person, oriented to place and oriented to time Exam Limitations: no limitations HEENT normocephalic Head and Scalp: normal to inspection, normocephalic and atraumatic Face and Sinus: normal facial exam Eyes General Eye: normal appearance of both eyes Neck full ROM Chest Chest: symmetrical chest wall rise Resp normal respiratory effort and normal air movement Auscultation: clear to auscultation bilaterally Cardio regular rate, regular rhythm, S1 normal heart sound, S2 normal heart sound, no murmurs, no rub, no gallops and no clicks GI normal to inspection, nondistended, normoactive bowel sounds and non-tender GI Narrative: Fundus firm 3 below U appearance of the vagina normal Bladder / Kidney Exam: no CVA tenderness Back/Spine normal ROM Extremity normal to inspection and full ROM Skin no rashes or lesions noted Neuro oriented x3, CN's II-XII intact bilaterally and moves all extremities Sensorium / Orientation: awake, alert and oriented to person Motor Exam: clonus absent Deep Tendon Reflexes: Rt Patellar (L4): 2+ and Lt Patellar (L4): 2+ Assessment & Plan (1) (normal spontaneous vaginal delivery): (2) Elevated BP without diagnosis of hypertension: PLAN: 1. Routine and breast-feeding instructions 2. BP mildly elevated, patient asymptomatic. Patient with history of gestational hypertension during . Discussed with patient would recommend at least 48 hr stay, patient informed refusal and has no childcare, signing out AMA this evening. Reviewed risk of preeclampsia of stroke, brain hemorrhage, and seizure with elevated blood pressure. Discussed if unable to stay, would recommend twice daily BP check and follow up in office on 01/18 and to call if blood pressure elevated or signs of preeclampsia. Patient voiced understanding and informed refusal. To call if blood pressure increasing or 160/110. 3. Hemoglobin stable 4. Pain control 5. Declines LARC
[2021-01-16] MEDS: Prenatal Vits Tablet 1 TABLET PO (11:42)
--- NOTE | 2021-01-16 12:46 | CASEMGMT ---
HAY Note: Referral Source: single end sewer Source: Patient is leaving AMA due to childcare issues. Resources needed? Mom: Anna Watts PNC : Parris Jo CNM Control: Copper IUD Baby: Robert Watts 01/15/21 Apgars 9/9 Weight 7 lbs 11 ounces Car Seat Coverer: Dr. Braeden Oshea Breast Feeding. Patient reports that breast feeding is going good. Mother's Other Children: 4 1/2 boy 3 1/2 girl Almost 2 1/2 girl Housing: Patient resides in a house with her and kids Transportation: Patient said that her has a truck. Patient can drive but they are looking for a 2nd auto vehicle Supplies: Patient reports that she has carneae, crib and bassinet. Patient reports she you a firm mattress for the bassinette. Patient reports she has clothes and diapers for the . Supports: Patient reports that her support is her . Patient said that her sister in law is an and stops in occassionally. Patient's said that his 2 sisters live 3 miles away. Education Level- Last grade completed was 10th grade. Patient was homeschooled and discontinued school due to issues with my stepdad. Agency Involvement: Patient is involved with [employer] for insurance and EBT (food stamps) FOB: Derrek Time Together: Patient and the FOB have been for 6 years. FOB will be involved at . FOB appears to be actively involved in his family life. He showed this comic writer pictures of the children and his extended family. FOB's Employment:FOB is self employed doing fabrication so he works close to his home and his schedule is flexible. FOB reports no mental health/AOD and Domestic Violence issues Maternal Mental Health History: Patient reports no issues with depression, anxiety or post depression. Patient was educated on PPD. Patient was educated on shaken baby syndrome, post depression and safe sleeping Patient denied any history of AOD or drug use. Patient repots that she feels comfortable going home. She reports no concerns regarding discharge. HAY provided patient with resources on safe sleep, counseling, on line resources for post mood and anxiety, 10 facts about depression and anxiety, Depression and anxiety phone contact number, [facility] Moms of Newborns and Help Me Grow Plan: Home with Community Resources handouts Kristina DONALDSON
--- NOTE | 2021-01-20 18:21 | NURSING ---
no answer on follow up phone call .left voicemail
== END 2021-01-16 17:40 | disposition home or self-care (01) | DRG 560 ==
LOC: WPOUT 11:08 → WP 11:08
PROVIDERS: Admitting Provider Advanced Practice Midwife; Referring Provider Advanced Practice Midwife; Visit Provider Advanced Practice Midwife
DX: O99.214 Obesity complicating childbirth (principal); E66.01 Morbid (severe) obesity due to excess calories; M54.5 Low back pain; R03.0 Elevated blood-pressure reading, without diagnosis of hypertension; Z3A.39 39 weeks gestation of pregnancy; Z37.0 Single live birth
CPT/HCPCS: 59025; 59050; 84112; 85025; 85027; 86850; 86900; 86901; 99218; J7120; G0378

== ENCOUNTER 2024-02-11 07:12 | Inpatient (IN) | payer MEDICAID, SELFPAY ==
[2024-02-11] VITALS (63 sets, daily range): BP systolic 95–139; BP diastolic 46–79; PULSE 64–106; RESP 16; TEMP 36.2–36.8; O2SAT 90–99; BMI 39.8
[2024-02-11 07:50] LABS: Absolute Lymphocyte Count 1.43 X10^3/uL (0.83-4.51); Absolute Neutrophil Count 5.2 X10^3/uL (2.0-7.7); Basophil# 0.05 X10^3/uL; Basophil% 0.6 % (0-1); Eosinophil# 0.39 X10^3/uL; Eosinophils% 4.9 % (0-5); Hematocrit 36.4 % (37-47); Hemoglobin 12.1 g/dL (12.0-15.0); Lymphocyte # 1.43 X10^3/ul (0.83-4.51); Lymphocyte % 18.1 % (19-41); Mean Corp Hgb Conc 33.2 g/dL (32-36); Mean Corpuscular Hgb 27.6 pg (27.0-32.0); Mean Corpuscular Volume 83.1 fL (81-99); Monocyte# 0.77 X10^3/uL; Monocyte% 9.7 % (0-10); NRBC Flagged by Analyzer 0 % (0-5); Neutrophil % 65.9 % (47-70); Platelet Count 223 K/mm3 (150-450); RBC Distribution Width CV 13.3 % (11.6-14.6); RBC Distribution Width SD 40.1 fl (35.1-43.9); Red Blood Count 4.38 M/mm3 (4.2-5.4); White Blood Count 7.9 K/mm3 (4.4-11.0)
[2024-02-11] MEDS: Penicillin G Pot 5,000,000 UNITS in 0.9% Normal Saline (100mL MB+) 100 ML 150 UNITS IV (07:56)
[2024-02-11] MEDS: Lactated Ringers 1,000 ML 50 ML IV (07:56)
[2024-02-11] MEDS: Oxytocin 15 Units/NS 250ml 15 UNITS/250 ML IV.SOLN 2 UNITS IV (08:27)
[2024-02-11 08:34] LABS: Syphilis Antibodies Non-reactive
[2024-02-11] MEDS: 0.9% Normal Saline Single 100 ML IV.SOLN. INTRA-UTER (08:53)
--- NOTE | 2024-02-11 09:21 | PCM.HP.OB ---
HPI - General General Date of Admission: 02/11/24 HPI Narrative RAYMOND WHALEY, is a 28 F who presents at 39w5d for elective induction of labor. . complicated by maternal obesity with pregravid BMI 32 Maternal Data Information DANITA Calculator Estimated Delivery Date Method Current WG Current Estimate 02/13/24 Manual 39w 5d PFSH PFSH Medical History (Updated 02/11/24 @ 10:35 by Parris Jo CNM) Stillborn, normal MRSA infection Tonsillectomy planned Gestational HTN Home Medications ?Medication ?Instructions ?Recorded ?Last Taken ?Type vitamin 1 ea PO DAILY 02/28/18 02/10/24 History no.76-iron,carbonyl 29 mg iron-folic acid 1 mg tablet (PNV 29-1) aspirin 81 mg tablet 81 mg PO DAILY 01/15/21 02/10/24 History Allergy/AdvReac Type Severity Reaction Status Date / Time codeine Allergy Shortness Verified 02/11/24 07:27 of breath vancomycin AdvReac Rash Verified 02/11/24 07:27 Family History (Updated 01/15/21 @ 12:14 by Jacquie Enriquez RN) Son Febrile seizure Mother Asthma Surgical History (Updated 02/11/24 @ 10:35 by Parris Jo CNM) Hx of breast reduction, elective [place] teeth removed Social History Smoking Status: Never smoker History Elective abortions Hx Para 4 Spontaneous abortions Hx # Term Pregnancies Ectopic pregnancies Hx # Pregnancies Multiple births # of living children NST FHR Rate Baby A Baseline: 135 Variability:: Moderate Accelerations:: 15 x 15 Decelerations:: None FHR Category:: Category I Uterine Activity:: Irregular ROS Constitutional Constitutional: Reports systems reviewed and no addt'l complaints, except as documented; Denies headache(s) Eyes Eyes: Denies acute decrease in peripheral vision, blurry vision or change in vision ENT HEENT: Reports systems reviewed and no addt'l complaints, except as documented Cardiovascular Cardiovascular: Denies chest pain or dizziness Respiratory/Chest Respiratory/Chest: Denies cough, dyspnea, dyspnea on exertion, shortness of breath at rest or shortness of breath with exertion Gastrointestinal Gastrointestinal: Denies abdominal pain, diarrhea, nausea or vomiting Genitourinary Genitourinary: Denies abdominal discomfort Musculoskeletal Musculoskeletal: Denies limited range of motion Integumentary Integumentary: Reports systems reviewed and no addt'l complaints, except as documented Neurologic Neurologic: Reports systems reviewed and no addt'l complaints, except as documented Psychiatric Psychiatric: Reports systems reviewed and no addt'l complaints, except as documented Endocrine Endocrinology: Reports systems reviewed and no addt'l complaints, except as documented Hematologic/Lymphatic Hematologic/Lymphatic: Reports systems reviewed and no addt'l complaints, except as documented Allergic/Immunologic Allergic/Immunologic: Reports systems reviewed and no addt'l complaints, except as documented Vital Signs Vital Signs Vital Signs: 02/11/24 08:28 02/11/24 08:28 02/11/24 08:28 Temperature Temperature Source Pulse Rate 89 Respiratory Rate Blood Pressure 115/57 L BP Systolic 115 BP Diastolic 57 Pulse Ox 97 02/11/24 08:28 02/11/24 08:28 02/11/24 08:28 Temperature 97.3 F L Temperature Source Temporal Pulse Rate Respiratory Rate 16 Blood Pressure BP Systolic BP Diastolic Pulse Ox Weight Weight: 232 lb Body Mass Index (BMI) 39.8 Physical Exam Const alert and oriented x3 General Appearance: cooperative Orientation / Consciousness: awake, oriented to person, oriented to place and oriented to time Exam Limitations: no limitations HEENT normocephalic Head and Scalp: normal to inspection, normocephalic and atraumatic Face and Sinus: normal facial exam Eyes General Eye: normal appearance of both eyes Neck full ROM Chest Chest: symmetrical chest wall rise Resp normal respiratory effort and normal air movement Auscultation: clear to auscultation bilaterally Cardio regular rate, regular rhythm, S1 normal heart sound, S2 normal heart sound, no murmurs, no rub, no gallops and no clicks GI normal to inspection, nondistended, normoactive bowel sounds and non-tender appearance of the vagina normal Bladder / Kidney Exam: no CVA tenderness Manual OB Exam: estimated gestational size appropriate, presentation cephalic, dilated 2cm, effaced 50%, station -2 and other Patel inserted through cervix without difficulty, 30ml NS instilled, tolerated well. Back/Spine normal ROM Extremity normal to inspection and full ROM Skin no rashes or lesions noted Neuro oriented x3, CN's II-XII intact bilaterally and moves all extremities Sensorium / Orientation: awake, alert and oriented to person Motor Exam: clonus absent Deep Tendon Reflexes: Rt Patellar (L4): 2+ and Lt Patellar (L4): 2+ Labs Labs Labs: Blood Type O POSITIVE Antibody Screen NEGATIVE Hct 36.4 % (37-47) L Hgb 12.1 g/dL (12.0-15.0) Syphilis Total Ab Non-reactive Rubella IgG Antibody 69.2 IU/mL Hep Bs Antigen Negative (Negative) HIV 1&2 Antibody Non-Reactive (Nonreactive) Glucose 1 Hr 50 gm 107 mg/dL (70-140) Group B Strep DNA Negative (Negative) Rhogam given: No HIV negative RPR negative HBsAG negative HepC negative O positive GC/CT negative GBS positive 1hr GCT normal Rubella immune Assessment & Plan (1) Encounter for elective induction of labor: (2) Obesity during : (3) Positive GBS test: (4) History of gestational hypertension: (5) History of gestational diabetes: (6) History of IUFD: COMMENT: Missed with anhydramnios and poor visualization at 18wk. Abnormal AFP, NIPT negative. No follow up testing. (7) History of bilateral breast reduction surgery: (8) History of delivery of macrosomal : COMMENT: Third child 9lb 9oz, no complications PLAN: Plan 1) Admit to labor and delivery 2) Routine PN labs 3) Continous EFM 4) Patel and pitocin for induction of labor 5) PCN for GBS prophylaxis 6) Planning unmedicated , epidural or pain management upon request 7) collaborative physician and notified of above assessment, plan, and status
--- NOTE | 2024-02-11 10:49 | PN.OBGYN_ITS ---
Subjective Subjective Sitting up in bed. Objective Data Objective Data Vital Signs: Vital Signs Temp Pulse Resp BP Pulse Ox 98.0 F 75 16 122/70 H 97 02/11/24 10:00 02/11/24 10:01 02/11/24 10:00 02/11/24 10:01 02/11/24 08:28 Weight: 232 lb Body Mass Index (BMI) 39.8 Intake & Output: Intake and Output for Last 24 Hours 02/09/24 02/10/24 02/11/24 23:59 23:59 23:59 Intake Total 113.07 / 113.07 Balance 113.07 / 113.07 Lab / Micro Data 02/11/24 07:35 Labs: Laboratory Results - last 24 hr 02/11/24 07:35: WBC 7.9, RBC 4.38, Hgb 12.1, Hct 36.4 L, MCV 83.1, MCH 27.6, MCHC 33.2, RDW Std Deviation 40.1, RDW Coeff of Salima 13.3, Plt Count 223, MPV 10.0, Immature Gran % (Auto) 0.800, Neut % (Auto) 65.9, Lymph % (Auto) 18.1 L, [place] % (Auto) 9.7, Eos % (Auto) 4.9, Baso % (Auto) 0.6, Absolute Neuts (auto) 5.2, Absolute Lymphs (auto) 1.43, Nucleated RBC % 0, Syphilis Total Ab Non- reactive, Blood Type O POSITIVE, Antibody Screen NEGATIVE Physical Exam Const alert and oriented x3 General Appearance: cooperative Orientation / Consciousness: awake, oriented to person, oriented to place and oriented to time Exam Limitations: no limitations HEENT normocephalic Head and Scalp: normal to inspection, normocephalic and atraumatic Face and Sinus: normal facial exam Eyes General Eye: normal appearance of both eyes Neck full ROM Chest Chest: symmetrical chest wall rise Resp normal respiratory effort and normal air movement Auscultation: clear to auscultation bilaterally Cardio regular rate, regular rhythm, S1 normal heart sound, S2 normal heart sound, no murmurs, no rub, no gallops and no clicks GI normal to inspection, nondistended, normoactive bowel sounds and non-tender appearance of the vagina normal Narrative: Ultrasound for position. hand coming across cervical os. BOW intact Bladder / Kidney Exam: no CVA tenderness Back/Spine normal ROM Extremity normal to inspection and full ROM Skin no rashes or lesions noted Neuro oriented x3, CN's II-XII intact bilaterally and moves all extremities Sensorium / Orientation: awake, alert and oriented to person Motor Exam: clonus absent Deep Tendon Reflexes: Rt Patellar (L4): 2+ and Lt Patellar (L4): 2+ NST FHR Rate Baby A Baseline: 145 Variability:: Moderate Accelerations:: 15 x 15 Decelerations:: None FHR Category:: Category I Uterine Activity:: Irregular Assessment & Plan (1) (normal spontaneous vaginal delivery): (2) Encounter for elective induction of labor: (3) Obesity during : PLAN: Plan 1) Await spontaneous ROM at this time 2) Will notify incase nuchal hand after rupture 3) Continue GBS prophylaxis 4) Pitocin per protocol
[2024-02-11] MEDS: Penicillin G 3,000,000 Units 50 ML 100 UNITS IV ×3 (12:17→19:54)
[2024-02-11] MEDS: Lactated Ringers 1,000 ML 999 ML IV (13:49)
[2024-02-11] MEDS: fentaNYL-bupivacaine (epidural) 100 ML BAG EPIDURAL ×2 (14:22→19:24)
[2024-02-11] MEDS: Ondansetron 4 MG/2 ML Vial IV ×2 (15:46→19:53)
[2024-02-11] MEDS: Lactated Ringers 1,000 ML 200 ML IV (17:14)
[2024-02-11] MEDS: 0.9% Saline Lock 10 ML Syringe IV (19:53)
[2024-02-11] MEDS: Oxytocin 15 Units/NS 250ml 15 UNITS/250 ML IV.SOLN 334 UNITS IV (20:45)
--- NOTE | 2024-02-11 20:55 | EX.PCM.OBRPT ---
Assessment & Plan (1) Vaginal delivery: (2) Lactating mother: Maternal Data Information DANITA Calculator Estimated Delivery Date Method Current WG Current Estimate 02/13/24 Manual 39w 5d Vaginal Delivery Maternal Presentation Maternal Presentation: Elective Induction Type of Induction: Pitocin and Patel Bulb Operative Information Date of Procedure: 02/11/24 Pre-Operative Diagnosis: Elective induction of labor Post-Operative Diagnosis: Surgery / Procedure Performed: Spontaneous Vaginal Delivery Type of Anesthesia: Epidural Estimated Blood Loss: 200 ml Time of Delivery: 20:31 Findings Description of Procedure: Progressed to complete with urge to push. Epidural for pain management. of viable female infant over intact perineum. APGARS 8,9 respectively. Infant head delivered with body immediately forthcoming. Placed on maternal abdomen, strong cry. Mouth and nares suctioned for secretions. Pitocin started for active 3rd stage management. Cord doubly clamped and cut by FOB after pulsations ceased, delayed cord clamping. Placenta not forthcoming, coming through cervical os, manual removal, intact via pritchett, 3 vessel cord intact. Perineum inspected and revealed intact. Fundus firm and hemostasis achieved. EBL 200ml. Mom and baby stable, planning to breastfeed. Family bonding well. notified of delivery. Presentation: Vertex and RETA Amniotic Membrane Rupture Type: Artificial Amniotic Fluid Description: Clear Placental Delivery Description: Manual Removal Placenta Disposition: [facility] Cord Vessel Description: 3 Vessels Cord Entanglement: None Infant A Gender: Female (1 minute): 8 (5 minute): 9 Delayed Cord Clamping: Yes Post Vaginal Delivery Medications Given After Delivery: IV Pitocin Episiotomy Description: None Laceration: None Complication Complications: None
[2024-02-11] MEDS: Oxytocin 15 Units/NS 250ml 15 UNITS/250 ML IV.SOLN 83 UNITS IV (21:16)
[2024-02-12] VITALS: BP 118/56; PULSE 84; RESP 16; TEMP 36.3; O2SAT 97
[2024-02-12 00:10] VITALS: BP 118/56; PULSE 86
[2024-02-12] MEDS: Acetaminophen 500 MG Tablet 1000 MG PO ×2 (00:39→09:48)
[2024-02-12 03:48] VITALS: BP 95/51; PULSE 88; RESP 16; TEMP 36.7; O2SAT 96
[2024-02-12 05:44] LABS: Absolute Lymphocyte Count 1.45 X10^3/uL (0.83-4.51); Absolute Neutrophil Count 9.4 X10^3/uL (2.0-7.7); Basophil# 0.04 X10^3/uL; Basophil% 0.3 % (0-1); Eosinophil# 0.26 X10^3/uL; Eosinophils% 2.1 % (0-5); Hematocrit 32.5 % (37-47); Hemoglobin 10.6 g/dL (12.0-15.0); Lymphocyte # 1.45 X10^3/ul (0.83-4.51); Lymphocyte % 11.8 % (19-41); Mean Corp Hgb Conc 32.6 g/dL (32-36); Mean Corpuscular Hgb 27.5 pg (27.0-32.0); Mean Corpuscular Volume 84.2 fL (81-99); Mean Platelet Vol. 10.1 fl (6.2-12.0); Monocyte# 1.05 X10^3/uL; Monocyte% 8.5 % (0-10); NRBC Flagged by Analyzer 0 % (0-5); Neutrophil % 76.6 % (47-70); POSITIVE MORPHOLOGY YES; Platelet Count 209 K/mm3 (150-450); RBC Distribution Width CV 13.5 % (11.6-14.6); RBC Distribution Width SD 41.4 fl (35.1-43.9); Red Blood Count 3.86 M/mm3 (4.2-5.4); White Blood Count 12.3 K/mm3 (4.4-11.0)
[2024-02-12 06:27] LABS: Differential Comment SCANNED; Differential Indicated SCAN CRITERIA MET
[2024-02-12 08:00] VITALS: BP 113/58; PULSE 76; RESP 16; TEMP 36.8; O2SAT 98
--- NOTE | 2024-02-12 08:43 | PCM.PN.OB ---
Subjective Subjective pt doing well and offers no complaints. no YEUNG, dizziness, Cp, SOB, leg pain. ambulating and voiding without difficulty. wilber diet without N/V. lochia normal. Objective Data Objective Data Vital Signs: Vital Signs Temp Pulse Resp BP Pulse Ox O2 Del Method 98.3 F 76 16 113/58 L 98 Room Air 02/12/24 08:00 02/12/24 08:00 02/12/24 08:00 02/12/24 08:00 02/12/24 08:00 02/12/24 08:00 Oxygen Delivery Method Room Air Weight: 232 lb Body Mass Index (BMI) 39.8 Intake & Output: Intake and Output for Last 24 Hours 02/10/24 02/11/24 02/12/24 23:59 23:59 23:59 Intake Total 2355.41 / 2355.41 250 / 250 Output Total 1200 / 1600 1300 / 1300 Balance 1155.41 / 755.41 -1050 / -1050 Lab / Micro Data 02/12/24 05:35 Labs: Laboratory Results - last 24 hr 02/12/24 05:35: WBC 12.3 H, RBC 3.86 L, Hgb 10.6 L, Hct 32.5 L, MCV 84.2, MCH 27.5, MCHC 32.6, RDW Std Deviation 41.4, RDW Coeff of Salima 13.5, Plt Count 209, MPV 10.1, Immature Gran % (Auto) 0.700, Neut % (Auto) 76.6 H, Lymph % (Auto) 11.8 L, Mitchell % (Auto) 8.5, Eos % (Auto) 2.1, Baso % (Auto) 0.3, Absolute Neuts (auto) 9.4 H, Absolute Lymphs (auto) 1.45, Nucleated RBC % 0, Differential Comment SCANNED Physical Exam Const alert and no apparent distress General Appearance: comfortable HEENT normocephalic Resp normal respiratory effort GI soft to palpation, non-tender and non-distended Extremity no calf tenderness Assessment & Plan (1) Vaginal delivery: PLAN: PPD#1 s/p . Doing well. Going home instructions reviewed. Patient requesting to leave AMA and states she signed out AMA with other children as well. Discussed recommendation is to stay 24 hours after delivery and can discharge her tonight. She declines discharge tonight and states she wants to be home sooner. She understands by signing out AMA this is going against medical advice and recommendation.
[2024-02-12 12:43] VITALS: BP 113/56; PULSE 76; RESP 16; TEMP 36.6; O2SAT 96
[2024-02-12] MEDS: Ibuprofen 600 MG Tablet PO (14:18)
--- NOTE | 2024-02-13 09:07 | CASEMGMT ---
Social Work Assessment Labor and Delivery Unit Patient Address: [id number] [place] [address] Phone number: [phone] Date of Referral: 02/12/24 Time of Referral:? 0100 Referred By: Parris Jo Date of Intervention: ?02/12/24? Time of Intervention:? 1400 Reason for Referral:? mental health Sw completed chart review and acknowledges social work consult due to maternal mental health history. Sw presented to bedside and introduced self to mother of baby (IVY- Anna) and father of baby (FOB- Lake). Sw explained reason for sw consult and completed psychosocial assessment. History obtained from: medical records, MOB and FOB Household composition: Currently residing in the family home is IVY, MILLI, their 4 older children (Dannie- 7, Carrol- 6, Linda- 5, and Robert- 3), baby will also reside with family when ready for discharge. Parents deny any issue or concerns with housing, stating that it is safe and secure. Patient's parent/guardian status:? ?IVY reports that her and FOArnulfo have been together for 9 years after being introduced to each other through mutual friends. No concerns reported of domestic violence or intimate partner violence. Medical History: ?IVY is 28 year old female who is 10, para 4- now 5 following labor and delivery of . IVY received routine care during with [facility]. IVY presented to hospital for scheduled induction of labor at 39 weeks gestation on 02/11/24. Baby girl, was born on 02/11/24 weighing 7lb 10oz with apgars of 8 and 9 at one and five minutes of life, respectfully. IVY states that she is now signing out against AMA because baby is less than 24 hours old. MOB states that they will agree to follow up outpatient for testing that is being requested. IVY states that she would prefer to be at her home in her own space, and does not see a medical reason for her to stay admitted. IVY states that baby will be seen for a couple of appointments with fx artist (Char[facility]), however they do not follow with a fx artist for well check appointments. Educational Status:? Both parents completed 11th grade Financial Status: MILLI is employed outside of the home working as a fabricator. FOArnulfo states that he works for himself and is able to take off time now that baby has been born. Infant Supplies:?? Parents report to obtaining all necessary baby supplies, including: car seat, safe sleep space, clothes, diapers and wipes. Childcare/Caregiver(s):? MOB will be the primary caregiver to baby. Transportation:?? Both parents drive and have reliable means of transportation, no barriers at this time. Programs/Agencies Involved: ???IVY reports that she has access to SNAP benefits, denies medical insurance through S and denies linkage to mental health services or supports. Children Services/Legal Issues:??? No history of children services involvement disclosed. Sw not making referral to children services at this time. Behavioral Health Issues: ??Mental Health History:?FOB denies mental health history. MOB states denies having history of anxiety or depression. IVY then states that she had a late term loss prior to this / delivery and she did experience anxiety early on in nervous that she would also lose this . MOB states that once she got through a certain point in her she felt more at ease. ?? Substance Use History:?Parents deny substance use prior to or during . ? Family History:Parents deny family history of substance use or significant mental health diagnoses. ? Drug Screens: ??No drug screens observed in chart review. Family/Social Stressors:? Parents deny any issues, concerns or stressors. Ronnie acknowledges that this is 5th baby for parents, 5 prior losses/ miscarriages with a later term loss prior to this successful / delivery. MOB and FOB do not seek medical care/ follow routine well check recommendations for their children. Parents state that they do a lot of holistic or homeopathic ways to provide care to themselves and their children. MOB with loss and as a result experienced anxiety early on in this , but is unable to recognize symptoms. Support Systems: MOB states that she has family, friends and a mormon family that is supportive. Depression/Shaken Baby/Safe Sleeping:?Ronnie educated parents at length regarding signs and symptoms of baby blues and mood and anxiety disorders to be on the lookout for. FOB states that he is not sure if he would be able to recognize if MOB were struggling with her mental health during this time period. FOB states that if MOB was struggling and he did not know how to help and support her he would find someone that could. Much support and education provided to help parents talk about their mental health and to be aware of what to be mindful of during this time. Sw educated parents on shaken baby prevention and ABCs of safe sleep, parents express understanding. ASSESSMENT:?MOB and baby admitted following labor and delivery. MOB states that she does see OB during , however she does not follow a medical provider regularly, and the same goes for her children and . Sw educated parents about importance of routine well check care for all of their children for annual evaluations and vaccines. MOB states that she is asking to be discharged AMA because she does not see the need for her to stay admitted medically and will bring baby back for follow up next day for 24 hour testing. MOB and FOB have natural supports in place and have obtained all necessary baby supplies. PLAN:? MOB and baby to be discharged when medically ready. ?No other services requested or indicated. Brian Marina, ORIGINATION SPECIALIST, UR COORDINATOR
--- NOTE | 2024-03-12 09:31 | DS.PCM_ITS ---
Providers Date of Admission: 02/11/24 Date of Discharge: 02/12/24 Primary Care Physician: Ai Primary Care Phys Reason For Visit: VAGINAL DELIVERY Diagnosis Discharge Diagnosis (1) Vaginal delivery: Status: Acute Code(s): O80 - Encounter for full-term uncomplicated delivery Plan: PPD#1 s/p . Doing well. Going home instructions reviewed. Patient requesting to leave AMA and states she signed out AMA with other children as well. Discussed recommendation is to stay 24 hours after delivery and can discharge her tonight. She declines discharge tonight and states she wants to be home sooner. She understands by signing out AMA this is going against medical advice and recommendation. Medications at Discharge Home Medications vitamin no.76-iron,carbonyl 29 mg iron-folic acid 1 mg tablet (PNV 29- 1) 1 ea PO DAILY 02/28/18 aspirin 81 mg tablet 81 mg PO DAILY 01/15/21 Hospital Course Operations None Procedures None Summary of Care Provided Minutes Spent on Discharge: 10 Hospital Course: Patient was admitted for an elective induction of labor. She had a vaginal delivery. See operative report for details. She was discharged home on day 1 in good condition with follow up in office. Weight / BMI Weight Weight: 232 lb Body Mass Index (BMI) 39.8 ABG / Lab / Microbiology Data 02/12/24 05:35 Meaningful Use Info Meaningful Use Meaningful Use Diagnoses (Choose all that apply): None applicable Ischemic Stroke Statin Dosing Therapy Reference: STATIN DOSE THERAPY REFERENCE: * Patients > 75 years receive moderate or high dose statin therapy. * Patients 75 years or YOUNGER should receive HIGH intensity statin dose unless contraindicated. You will be required to document reason for non-treatment if statin daily dose does not meet guidelines. HIGH DOSE STATIN THERAPY DAILY Atorvastatin > than or = to 40 mg Rosuvastatin > than or = to 20 mg Amlodipine + Atorvastatin > than or = to 2.5/40 mg Ezetimibe + Simvastatin 10/80 mg Simvastatin 80mg Discharge Plan Admission Admit Date/Time: 02/11/24 07:12 Attending Provider: Parris Jo Primary Care Provider: Care Physician,Ai Primary Discharge Orders/Prescriptions Prescriptions: No Action PNV 29-1 1 EACH tablet 1 ea PO DAILY aspirin 81 mg Tablet 81 mg PO DAILY Referrals / Follow Up: Care Physician,No Primary [Primary Care Provider] - Disposition Disposition (needs filled in before D/C Order can be placed): Against Medical Advice
== END 2024-02-12 15:48 | disposition left against medical advice (07) | DRG 560 ==
PROVIDERS: Admitting Provider Advanced Practice Midwife; Referring Provider Advanced Practice Midwife; Visit Provider Advanced Practice Midwife
DX: O99.214 Obesity complicating childbirth (principal); Z37.0 Single live birth; Z3A.39 39 weeks gestation of pregnancy; O99.824 Streptococcus B carrier state complicating childbirth; Z86.32 Personal history of gestational diabetes; Z53.29 Procedure and treatment not carried out because of patient's decision for other reasons
CPT/HCPCS: 59025; 59050; 76815; 85025; 86780; 86850; 86900; 86901; 99221; J7120; A4216; G0378; J2405